=== PATIENT | female | born 1995 | race Caucasian/White ===

== ENCOUNTER 2019-03-26 07:55 | Emergency (ER) | payer OTHER ==
[2019-03-26 08:15] VITALS: BP 115/90
--- NOTE | 2019-03-26 09:25 | ED Physician Documentation ---
PD HPI SKIN - Stated complaint Stated Complaint: FEMALE /CONGESTED - Chief complaint Chief Complaint: General - History obtained from History obtained from: Patient - History of Present Illness Timing - onset: How many days ago (5) Timing - duration: Days (5) Timing - details: Gradual onset, Still present Location: Genitals Quality / character: Painful, Raised Similar symptoms before: Has not had sx before Recently seen: Not recently seen - Additional information Additional information: 23-year-old female who has a history of eczema has had a patch of eczema on the back of her right calf for the past 2 months and she has not had luck with getting the creams to make it go away. She is wondering if she can get some prednisone for this. In addition she has a small lump in the vaginal area that is tender to push on and it is smaller than a pea. Review of Systems Constitutional: denies: Fever Nose: denies: Congestion Throat: denies: Sore throat Respiratory: denies: Cough GI: denies: Vomiting PD PAST MEDICAL HISTORY - Past Medical History Past Medical History: Yes Derm: Eczema - Past Surgical History Past Surgical History: No - Present Medications Home Medications: Ambulatory Orders Medication Instructions Recorded Confirmed Sulfamethoxazole/Trimethoprim 1 each PO BID #14 tablet 03/26/19 [Sulfamethoxazole-Tmp Ds Tablet] predniSONE [Prednisone] 40 mg PO DAILY #10 tablet 03/26/19 - Allergies Allergies/Adverse Reactions: Allergies Allergy/AdvReac Type Severity Reaction Status Date / Time No Known Drug Allergies Allergy Verified 03/26/19 08:15 - Social History Does the pt smoke?: No Smoking Status: Never smoker Does the pt drink ETOH?: Yes Does the pt have substance abuse?: No - Immunizations Immunizations are current?: Yes - POLST Patient has POLST: No PD ED PE NORMAL - Vitals Vital signs reviewed: Yes (hypertensive ) - General General: Alert and oriented X 3, No acute distress, Well developed/nourished - HEENT HEENT: Atraumatic, PERRL - Respiratory Respiratory: No respiratory distress - Female Female : Stamping Mill Tender present (Katia), Other (There is a pea sized mass in the left labia majora that is firm and tender without overlying erythema) - Derm Derm: Normal color, Warm and dry, Other (There is an eczematous rash to the posterior aspect of the right knee. ) - Extremities Extremities: No deformity, No edema, Other - Neuro Neuro: No motor deficit, No sensory deficit Eye Opening: Spontaneous Motor: Obeys Commands Verbal: Oriented GCS Score: 15 - Psych Psych: Normal mood, Normal affect Results - Vitals Vitals: Vital Signs - 24 hr 03/26/19 08:10 Temperature 97.6 C H Heart Rate 84 Respiratory 14 Rate Blood Pressure 115/90 H O2 Saturation 84 L Oxygen O2 Source Room air PD MEDICAL DECISION MAKING - ED course Complexity details: considered differential, d/w patient ED course: 23 y/o female with eczema and a tiny abscess forming in the left vaginal area. Departure - Departure Disposition: Home, Self Care Clinical Impression: Abscess Eczema Qualifiers: Eczema type: flexural Qualified Code(s): L20.82 - Flexural eczema Condition: Stable Instructions: ED Dermatitis Atopic Eczema, ED Staph Infec Abx Tx Only Follow-Up: [facility] [Provider Group] Prescriptions: predniSONE [Prednisone] 40 mg PO DAILY #10 tablet Sulfamethoxazole/Trimethoprim [Sulfamethoxazole-Tmp Ds Tablet] 1 each PO BID #14 tablet
[2019-03-26 09:43] LABS: BILIRUBIN,URINE NEGATIVE (NEGATIVE); GLUCOSE, URINE (UA) NEGATIVE (NEGATIVE); KETONES,URINE (UA) TRACE mg/dL (NEGATIVE); LEUKOCYTE ESTERASE, URINE NEGATIVE (NEGATIVE); NITRITE,URINE NEGATIVE (NEGATIVE); OCCULT BLOOD,URINE NEGATIVE (NEGATIVE); PH,URINE 6.5 PH (5.0-7.5); PROTEIN,URINE NEGATIVE (NEGATIVE); UROBILINOGEN,URINE 0.2 (NORMAL) E.U./dL (NORMAL)
[2019-03-26 09:45] LABS: CLARITY,URINE CLEAR (CLEAR)
== END 2019-03-26 09:37 | disposition home or self-care (01) ==
LOC: ED 07:55
DX: L20.82 Flexural eczema (principal); N76.4 Abscess of vulva
CPT/HCPCS: 81001; 81003; 87086; 99283

== ENCOUNTER 2021-10-15 05:29 | Emergency (ER) | payer OTHER ==
--- NOTE | 2021-10-15 07:21 | ED Physician Documentation ---
PD HPI BACK PAIN - Stated complaint Stated Complaint: BACK/HEAD PX - Chief complaint Chief Complaint: Back Pain - History obtained from History obtained from: Patient - History of Present Illness Timing - onset: Yesterday Timing - duration: Hours (18) Timing - details: Abrupt onset (onset while lying in bed of flank pain to low back pain that radiates up toward upper back, worse with movement, and also associated with lower abd pain.), Still present (pain has persisted despite heat, ice, Ibuprofen, rest and movement.) Location: Mid, Right, Left Quality: Pain, Aching Associated symptoms: Other (some nausea but no vomiting.). No: Fever, Weakness, Numbness Worsened by: Movement Contributing factors: No: Lifting, Twisting, Trauma Similar symptoms before: Has not had sx before Recently seen: Not recently seen (had COVID vaccine about 6 months ago) Review of Systems Constitutional: reports: Myalgias, Fatigue. denies: Fever, Chills Nose: reports: Congestion. denies: Rhinorrhea / runny nose Throat: reports: Sore throat Cardiac: denies: Chest pain / pressure Respiratory: reports: Cough (mild). denies: Dyspnea GI: reports: Abdominal Pain, Nausea. denies: Vomiting, Constipation (no BM for couple days, but had not eaten much), Diarrhea : reports: LMP (3 weeks ago, normal). denies: Dysuria, Frequency, Discharge Skin: denies: Rash, Lesions Neurologic: reports: Headache (mild). denies: Near syncope Immunocompromised: denies: Immunocompromised PD PAST MEDICAL HISTORY - Past Medical History Past Medical History: Yes Cardiovascular: None Respiratory: None Neuro: None Endocrine/Autoimmune: None Derm: Eczema - Past Surgical History Past Surgical History: No - Present Medications Home Medications: Ambulatory Orders Medication Instructions Recorded Confirmed Sulfamethoxazole/Trimethoprim 1 each PO BID #14 tablet 03/26/19 [Sulfamethoxazole-Tmp Ds Tablet] predniSONE [Prednisone] 40 mg PO DAILY #10 tablet 03/26/19 Docusate Sodium 100Mg Capsule 100 mg PO DAILY #15 cap 10/15/21 [Colace 100Mg Capsule] HYDROcod/ACETAM 5/325 [[place] 5/325] 1 ea PO Q6H PRN #12 tablet 10/15/21 Naproxen 500 mg PO BID 10 Days #20 tab 10/15/21 Ondansetron Odt [Zofran] 4 mg TL Q6H PRN #10 tablet 10/15/21 methocarbamoL [Robaxin] 500 mg PO TID PRN #15 tablet 10/15/21 - Allergies Allergies/Adverse Reactions: Allergies Allergy/AdvReac Type Severity Reaction Status Date / Time No Known Drug Allergies Allergy Verified 03/26/19 08:15 - Social History Does the pt smoke?: No Smoking Status: Never smoker Does the pt drink ETOH?: Yes Does the pt have substance abuse?: No - Immunizations Immunizations are current?: Yes - POLST Patient has POLST: No PD ED PE NORMAL - Vitals Vital signs reviewed: Yes - General General: Alert and oriented X 3, Well developed/nourished, Other (appears uncomfortable with back movement, but also guarding lower abd. ) - HEENT HEENT: Moist mucous membranes, Pharynx benign - Neck Neck: Supple, no meningeal sign, No bony TTP, No adenopathy - Cardiac Cardiac: RRR, No murmur - Respiratory Respiratory: Clear bilaterally - Abdomen Abdomen: Normal bowel sounds, Soft, Non distended, Other (tender more RLQ with guarding. Mild percussion tenderness. Mild tender left lower abd as well. ) - Female Female : Deferred - Rectal Rectal: Deferred - Back Back: No spinal TTP, Other (there is bilateral tenderness to percussion in flank, more to the left actually. No rash nor sores. Some muscular tenderness thoracolumbar with just palpation. ) - Derm Derm: Normal color, Warm and dry - Neuro Neuro: Alert and oriented X 3, No motor deficit, Normal speech Results - Vitals Vitals: Vital Signs - 24 hr 10/15/21 10/15/21 05:35 08:26 Temperature 36.3 C L Heart Rate 94 76 Respiratory 18 13 Rate Blood Pressure 118/71 121/66 O2 Saturation 98 93 Oxygen O2 Source Room air - Labs Labs: Laboratory Tests 10/15/21 10/15/21 10/15/21 07:38 07:55 07:55 WBC 5.1 RBC 4.13 L Hgb 12.8 Hct 37.0 MCV 89.6 MCH 31.0 MCHC 34.6 RDW 11.5 L Plt Count 191 MPV 9.9 Neut # (Auto) 3.5 Lymph # (Auto) 0.6 L [place] # (Auto) 1.0 Eos # (Auto) 0.0 Baso # (Auto) 0.0 Absolute Nucleated RBC 0.00 Nucleated RBC % 0.0 Sodium 140 Potassium 4.4 Chloride 106 Carbon Dioxide 27 Anion Gap 7.0 BUN 10 Creatinine 0.7 Estimated GFR (MDRD) 103 Glucose 97 Calcium 9.2 Total Bilirubin 0.4 AST 22 ALT 17 Alkaline Phosphatase 43 Total Protein 7.5 Albumin 4.4 Globulin 3.1 Albumin/Globulin Ratio 1.4 Lipase 23 Urine Color YELLOW Urine Clarity CLEAR Urine pH 6.0 Ur Specific [place] 1.025 Urine Protein NEGATIVE Urine Glucose (UA) NEGATIVE Urine Ketones 15 H Urine Occult Blood NEGATIVE Urine Nitrite NEGATIVE Urine Bilirubin NEGATIVE Urine Urobilinogen 0.2 (NORMAL) Ur Leukocyte Esterase NEGATIVE Ur Microscopic Review NOT INDICATED Urine Culture Comments NOT INDICATED Urine HCG, Qual NEGATIVE Nasal Adenovirus (PCR) Nasal B. parapertussis DNA (PCR) Nasal Coronavir 229E PCR Nasal Coronavir HKU1 PCR Nasal Coronavir NL63 PCR Nasal Coronavir OC43 PCR Nasal Enterovir/Rhinovir PCR Nasal Influenza B PCR Nasal Influenza A PCR Nasal Parainfluen 1 PCR Nasal Parainfluen 2 PCR Nasal Parainfluen 3 PCR Nasal Parainfluen 4 PCR Nasal RSV (PCR) Nasal B.pertussis DNA PCR Nasal C.pneumoniae (PCR) Roderick Human Metapneumo PCR Nasal M.pneumoniae (PCR) Nasal SARS-CoV-2 (PCR) 10/15/21 07:57 WBC RBC Hgb Hct MCV MCH MCHC RDW Plt Count MPV Neut # (Auto) Lymph # (Auto) [place] # (Auto) Eos # (Auto) Baso # (Auto) Absolute Nucleated RBC Nucleated RBC % Sodium Potassium Chloride Carbon Dioxide Anion Gap BUN Creatinine Estimated GFR (MDRD) Glucose Calcium Total Bilirubin AST ALT Alkaline Phosphatase Total Protein Albumin Globulin Albumin/Globulin Ratio Lipase Urine Color Urine Clarity Urine pH Ur Specific [place] Urine Protein Urine Glucose (UA) Urine Ketones Urine Occult Blood Urine Nitrite Urine Bilirubin Urine Urobilinogen Ur Leukocyte Esterase Ur Microscopic Review Urine Culture Comments Urine HCG, Qual Nasal Adenovirus (PCR) NOT DETECTED Nasal B. parapertussis DNA (PCR) NOT DETECTED Nasal Coronavir 229E PCR NOT DETECTED Nasal Coronavir HKU1 PCR NOT DETECTED Nasal Coronavir NL63 PCR NOT DETECTED Nasal Coronavir OC43 PCR NOT DETECTED Nasal Enterovir/Rhinovir PCR NOT DETECTED Nasal Influenza B PCR NOT DETECTED Nasal Influenza A PCR NOT DETECTED Nasal Parainfluen 1 PCR NOT DETECTED Nasal Parainfluen 2 PCR NOT DETECTED Nasal Parainfluen 3 PCR NOT DETECTED Nasal Parainfluen 4 PCR NOT DETECTED Nasal RSV (PCR) NOT DETECTED Nasal B.pertussis DNA PCR NOT DETECTED Nasal C.pneumoniae (PCR) NOT DETECTED R[place]ick Human Metapneumo PCR NOT DETECTED Nasal M.pneumoniae (PCR) NOT DETECTED Nasal SARS-CoV-2 (PCR) DETECTED A PD MEDICAL DECISION MAKING - ED course Complexity details: reviewed results, re-evaluated patient, considered differential (Consider urinary tract infection versus kidney stone versus retrocecal appendix versus viral illness or other causes.), d/w patient Departure - Departure Disposition: 01 Home, Self Care Clinical Impression: COVID-19, Ruptured cyst of ovary, Myalgia Abdominal pain Qualifiers: Abdominal location: lower abdomen, unspecified Qualified Code(s): R10.30 - Lower abdominal pain, unspecified Condition: Stable Record reviewed to determine appropriate education?: Yes Instructions: ED Viral Syndrome, ED Cyst Ovarian Prescriptions: Docusate Sodium 100Mg Capsule [Colace 100Mg Capsule] 100 mg PO DAILY #15 cap Naproxen 500 mg PO BID 10 Days #20 tab HYDROcod/ACETAM 5/325 [[place] 5/325] 1 ea PO Q6H PRN #12 tablet PRN Reason: Pain methocarbamoL [Robaxin] 500 mg PO TID PRN #15 tablet PRN Reason: Spasms Ondansetron Odt [Zofran] 4 mg TL Q6H PRN #10 tablet PRN Reason: Nausea / Vomiting Comments: Your CT scan as well as urine test and blood tests do not show any signs of appendicitis. The appendix appears normal. You do have a partly ruptured ovarian cyst on the right side with a little bit of fluid in the pelvis status likely the cause of your lower abdominal and back pain. This should resolve with anti-inflammatories and pain medicine and time. You also tested positive for Covid and that would account for a lot of the other symptoms of general aches with the sore throat and cough and not feeling well. Stay well-hydrated. Use naproxen anti-inflammatory twice daily with food. To that add Tylenol every 4-6 hours for fevers or pains. Add hydrocodone if needed for worse pain in the short-term. Docusate stool softener twice daily for the first 2 or 3 days and then once daily to reduce the chance of constipation. Recheck if not improving over the next several days. You will need to follow your work related restrictions for being off work and quarantined. I transmitted the prescriptions to [facility] pharmacy. I am prescribing a short course of narcotic pain medication for you. These are potentially dangerous and addictive medications that should be used carefully. These medications may constipate you. Take an [id number] stool softener such as docusate twice daily with plenty of water while taking these medications. If you go 24 hours without a bowel movement, take [id number] MiraLAX, per package instructions. Do not drink or drive while taking these medications. If you received narcotic or sedating medications while in the emergency department do not drive for 24 hours. Store this medication in a safe, secure place and out of reach of children. It is a violation of federal law to give or sell this medication to another person or to use in a manner other than prescribed. The ED will not refill narcotic prescriptions, including prescriptions lost or s tolen. You can dispose of unwanted medications at the Risk Control Manager's office or at several pharmacies such as [facility]. Forms: Activity restrictions
[2021-10-15] MEDS ORDERED: ONDANSETRON 4 MG/2 ML VIAL IVP STA (07:36)
[2021-10-15] MEDS ORDERED: KETOROLAC 15 MG/ML VIAL IVP STA (07:36)
[2021-10-15] MEDS ORDERED: SODIUM CHLORIDE 0.9% 1,000 ML IV STA (07:36)
[2021-10-15] MEDS ORDERED: HYDROmorphone 1 MG/ML CARPUJECT IVP STA (07:36)
[2021-10-15 07:49] LABS: BILIRUBIN,URINE NEGATIVE (NEGATIVE); GLUCOSE, URINE (UA) NEGATIVE (NEGATIVE); KETONES,URINE (UA) 15 mg/dL (NEGATIVE); LEUKOCYTE ESTERASE, URINE NEGATIVE (NEGATIVE); NITRITE,URINE NEGATIVE (NEGATIVE); OCCULT BLOOD,URINE NEGATIVE (NEGATIVE); PROTEIN,URINE NEGATIVE (NEGATIVE); UROBILINOGEN,URINE 0.2 (NORMAL) E.U./dL (NORMAL)
[2021-10-15 07:56] LABS: CLARITY,URINE CLEAR (CLEAR); HCG UR QUAL NEGATIVE
[2021-10-15 08:10] LABS: BASOPHILS % (AUTO) 0.6 %; EOSINOPHILS % (AUTO) 0.4 %; HGB - HEMOGLOBIN 12.8 g/dL (12.0-16.0); LYMPHOCYTES # (AUTO) 0.6 10^3/uL (1.5-3.5); LYMPHOCYTES % (AUTO) 11.7 %; MEAN CORPUSCULAR HGB CONC 34.6 g/dL (32.0-36.0); MEAN CORPUSCULAR VOLUME 89.6 fL (81.0-99.0); MEAN PLATELET VOLUME 9.9 fL (7.9-10.8); MONOCYTES % (AUTO) 19.5 %; NEUTROPHILS # (AUTO) 3.5 10^3/uL (1.5-6.6); NEUTROPHILS % (AUTO) 67.4 %; PLT - PLATELET COUNT 191 10^3/uL (130-450); RED BLOOD COUNT 4.13 10^6/uL (4.20-5.40); RED CELL DISTRIBUTION WIDTH 11.5 % (12.0-15.0); WHITE BLOOD COUNT 5.1 x10^3/uL (4.8-10.8)
[2021-10-15] MEDS ORDERED: IOPAMIDOL-300 100 ML VIAL ONE (08:12)
[2021-10-15 08:22] LABS: ALBUMIN 4.4 g/dL (3.2-5.5); ALBUMIN/GLOBULIN RATIO 1.4 (1.0-2.2); BILIRUBIN,TOTAL 0.4 mg/dL (0.2-1.0); CALCIUM 9.2 mg/dL (8.5-10.3); CREATININE 0.7 mg/dL (0.4-1.0); POTASSIUM 4.4 mmol/L (3.5-5.0); TOTAL PROTEIN 7.5 g/dL (6.7-8.2)
[2021-10-15 08:27] VITALS: BP 121/66
--- NOTE | 2021-10-15 09:02 | CT Report ---
PROCEDURE: Abdomen/Pelvis W INDICATIONS: RLQ Abdominal pain, appendicitis suspected CONTRAST: IV CONTRAST: Isovue 300 ml: 100 PO CONTRAST: *NO PO CONTRAST TECHNIQUE: After the administration of contrast, 5 mm thick sections acquired from the diaphragms to the symphy sis. 5 mm thick coronal and sagittal reformats were acquired. For radiation dose reduction, the fol lowing was used: automated exposure control, adjustment of mA and/or kV according to patient size. COMPARISON: None. FINDINGS: Image quality: Excellent. ABDOMEN: Lung bases: Lung bases are clear. Heart size is normal. Solid organs: Liver is enlarged measuring 19.1 cm with steatosis. The spleen is normal in size and e nhancement. Gallbladder is unremarkable. Biliary system is non dilated. Pancreas enhances normally . No adrenal nodules. Kidneys demonstrate normal size and enhancement, without hydronephrosis. Peritoneum and bowel: Bowel loops demonstrate normal wall thickness and caliber. No free fluid or a ir. Prominent colonic stool is present. The appendix is visualized and is normal in size. It is air- filled without surrounding inflammatory change. Mild free fluid is noted within the pelvis. Nodes and vessels: No retroperitoneal or mesenteric adenopathy by size criteria. Aorta and inferior vena cava are normal in size. Miscellaneous: Trace fat-containing ventral hernia. PELVIS: Genitourinary: Bladder wall thickness is normal. There is a rim-enhancing focus within the right ad nexa measuring 1.8 cm surrounded by fluid. Miscellaneous: No inguinal hernias or adenopathy. Bones: No suspicious bony lesions. No vertebral body compression fractures. IMPRESSION: 1. Appendix is normal. 2. Mild free fluid within the pelvis. Rim-enhancing focus is noted within the right adnexal region friedman ggestive of ruptured hemorrhagic cyst. 3. Prominent stool, suggestive constipation. Reviewed by: Denisse Mcqueen MD on 10/15/2021 9:00 AM PST Approved by: Denisse Mcqueen MD on 10/15/2021 9:00 AM PST Station ID: [id number]
[2021-10-15] MEDS ORDERED: IOPAMIDOL-300 100 ML VIAL IVP ONE (09:06)
[2021-10-15 09:26] LABS: CORONAVIRUS 229E-RESP PCR NOT DETECTED; CORONAVIRUS HKU1-RESP PCR NOT DETECTED; CORONAVIRUS NL63-RESP PCR NOT DETECTED; CORONAVIRUS OC43-RESP PCR NOT DETECTED
[2021-10-15 09:27] LABS: B. PARAPERTUSSIS- RESP PCR PAN NOT DETECTED; B. PERTUSSIS- RESP PCR PANEL NOT DETECTED; C. PNEUMONIAE- RESP PCR PANEL NOT DETECTED; HUMAN METAPNEUMOVIRUS NOT DETECTED; INFLUENZA A- RESP PCR PANEL NOT DETECTED; INFLUENZA B - RESP PCR PANEL NOT DETECTED; M. PNEUMONIAE- RESP PCR PANEL NOT DETECTED; PARAINFLUENZA VIRUS 1 NOT DETECTED; PARAINFLUENZA VIRUS 2 NOT DETECTED; PARAINFLUENZA VIRUS 3 NOT DETECTED; PARAINFLUENZA VIRUS 4 NOT DETECTED; RHINOVIRUS/ENTEROVIRUS NOT DETECTED; RSV- RESP PCR PANEL NOT DETECTED; SARS-CoV-2 -RESP PCR PANEL DETECTED
== END 2021-10-15 11:54 | disposition home or self-care (01) ==
LOC: ED 05:29
DX: U07.1 COVID-19 (principal); N83.201 Unspecified ovarian cyst, right side
CPT/HCPCS: 0202U; 36415; 74177; 80053; 81003; 81025; 83690; 85025; 96374; 96375; 99284; J1170; Q9967; 81001; 87086

== ENCOUNTER 2022-08-26 07:40 | Emergency (ER) | payer OTHER ==
[2022-08-26 07:50] VITALS: BP 124/68
--- NOTE | 2022-08-26 08:09 | ED Physician Documentation ---
History of Present Illness - Stated complaint Stated Complaint: CHEST PX - Chief complaint Chief Complaint: Cardiac - Additonal information Additional information: Patient is 26-year-old female with left-sided chest pain. Ongoing x1 day. De nies previous episodes of chest pain. Pain made worse with deep inspiration. Denies chronic medical issues. Does report recent transcontinental travel approximately 1 month ago. Denies swelling in the lower extremities. Infrequent tobacco use. Review of Systems Ten Systems: 10 systems reviewed and negative Constitutional: denies: Fever Eyes: denies: Loss of vision Ears: denies: Loss of hearing Nose: denies: Rhinorrhea / runny nose Throat: denies: Dental pain / toothache Cardiac: reports: Chest pain / pressure Respiratory: denies: Dyspnea GI: denies: Abdominal Pain, Nausea, Vomiting PD PAST MEDICAL HISTORY - Past Medical History Cardiovascular: None Respiratory: None Neuro: None Endocrine/Autoimmune: None Derm: Eczema - Past Surgical History Past Surgical History: No - Present Medications Home Medications: Ambulatory Orders Medication Instructions Recorded Confirmed Sulfamethoxazole/Trimethoprim 1 each PO BID #14 tablet 03/26/19 [Sulfamethoxazole-Tmp Ds Tablet] predniSONE [Prednisone] 40 mg PO DAILY #10 tablet 03/26/19 Docusate Sodium 100Mg Capsule 100 mg PO DAILY #15 cap 10/15/21 [Colace 100Mg Capsule] HYDROcod/ACETAM 5/325 [[place] 5/325] 1 ea PO Q6H PRN #12 tablet 10/15/21 Naproxen 500 mg PO BID 10 Days #20 tab 10/15/21 Ondansetron Odt [Zofran] 4 mg TL Q6H PRN #10 tablet 10/15/21 methocarbamoL [Robaxin] 500 mg PO TID PRN #15 tablet 10/15/21 HYDROcod/ACETAM 5/325 [[place] 5/325] 1 - 2 ea PO Q6H PRN #14 tablet 08/26/22 - Allergies Allergies/Adverse Reactions: Allergies Allergy/AdvReac Type Severity Reaction Status Date / Time No Known Drug Allergies Allergy Verified 08/26/22 07:50 - Social History Does the pt smoke?: No Smoking Status: Never smoker Does the pt drink ETOH?: Yes Does the pt have substance abuse?: No - Immunizations Immunizations are current?: Yes - POLST Patient has POLST: No PD ED PE NORMAL - Vitals Vital signs reviewed: Yes - General General: Alert and oriented X 3, No acute distress, Well developed/nourished - HEENT HEENT: Atraumatic, PERRL, EOMI, Ears normal - Neck Neck: Supple, no meningeal sign - Cardiac Cardiac: RRR, No gallop, Strong equal pulses - Respiratory Respiratory: No respiratory distress, Clear bilaterally - Abdomen Abdomen: Normal bowel sounds - Female Female : Deferred - Derm Derm: Normal color - Extremities Extremities: No deformity - Neuro Neuro: Alert and oriented X 3, 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 iron 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 2-12 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, No motor deficit, Normal speech Results - Vitals Vitals: Vital Signs - 24 hr 08/26/22 08/26/22 07:47 09:46 Temperature 36.0 C L 36 C L Heart Rate 72 72 Respiratory 16 17 Rate Blood Pressure 124/68 124/68 O2 Saturation 97 98 Oxygen O2 Source Room air - EKG (time done) 0756 Rate: Rate (enter#) Rhythm: NSR [place]: Normal Intervals: Normal MS QRS: Normal Ischemia: Normal ST segments - Labs Labs: Laboratory Tests 08/26/22 08/26/22 08/26/22 08:06 08:06 08:06 WBC 4.0 L RBC 4.15 L Hgb 12.7 Hct 37.4 MCV 90.1 MCH 30.6 MCHC 34.0 RDW 11.8 L Plt Count 274 MPV 9.5 Neut # (Auto) 1.8 Lymph # (Auto) 1.5 [place] # (Auto) 0.6 Eos # (Auto) 0.1 Baso # (Auto) 0.1 Absolute Nucleated RBC 0.00 Nucleated RBC % 0.0 D-Dimer < 200.0 L Sodium 138 Potassium 3.5 Chloride 106 Carbon Dioxide 25 Anion Gap 7.0 BUN 9 Creatinine 0.6 Estimated GFR (MDRD) 122 Glucose 105 H Calcium 9.0 Total Bilirubin 0.9 AST 15 ALT 11 Alkaline Phosphatase 42 Troponin I High Sens Total Protein 7.1 Albumin 4.3 Globulin 2.8 Albumin/Globulin Ratio 1.5 Lipase 25 08/26/22 08:06 WBC RBC Hgb Hct MCV MCH MCHC RDW Plt Count MPV Neut # (Auto) Lymph # (Auto) [place] # (Auto) Eos # (Auto) Baso # (Auto) Absolute Nucleated RBC Nucleated RBC % D-Dimer Sodium Potassium Chloride Carbon Dioxide Anion Gap BUN Creatinine Estimated GFR (MDRD) Glucose Calcium Total Bilirubin AST ALT Alkaline Phosphatase Troponin I High Sens < 2.3 L Total Protein Albumin Globulin Albumin/Globulin Ratio Lipase PD MEDICAL DECISION MAKING - ED course Complexity details: reviewed results, re-evaluated patient, d/w patient ED course: Patient 26-year-old female presenting to the emergency department with left upper chest wall pain. Afebrile, hemodynamically stable. EKG nonacute. High- sensitivity troponin negative. Onset of pain was greater than 6 hours ago. D- dimer negative. Chest x-ray nonacute. Most likely etiology for the patient's pain is musculoskeletal. Will initiate high-dose nonsteroidal anti-inflammatory medications. Encourage careful follow-up with primary care or return to the emergency department as needed. Departure - Departure Disposition: 01 Home, Self Care Clinical Impression: Chest wall pain Instructions: ED Chest Pain Costochondritis Prescriptions: HYDROcod/ACETAM 5/325 [[place] 5/325] 1 - 2 ea PO Q6H PRN #14 tablet PRN Reason: Pain Comments: Thank you for allowing us to care for you today at [facility]. Prescription sent to [facility] Today in the emergency department your evaluated for any possible life- threatening medical emergency. All the testing performed in the emergency department including your EKG, chest x-ray and blood work were all very reassuring. There is no indication of injury to your heart, blood clot in your lung or other life-threatening process. In situations like this the most likely cause of chest pain is injury to the musculoskeletal structures of the chest wall. This is known as costochondritis and I have attached some information about this condition. I will be discharging with some medication you can take for pain control. Please drink plenty fluids and get plenty of rest. Please be aware that this medication is both sedating and habit-forming. It should not be used if you are operating a motor vehicle, using of machinery or you are the sole specification writer of young children. This medication cannot be refilled from the emergency department. Please make a follow-up appoint with your primary care doctor soon as possible. If it anytime you develop any new or worsening symptoms please not hesitate to return to the emergency department. Discharge Date/Time: 08/26/22 09:46
[2022-08-26 08:13] LABS: BASOPHILS # (AUTO) 0.1 10^3/uL (0.0-0.1); BASOPHILS % (AUTO) 1.3 %; EOSINOPHILS # (AUTO) 0.1 10^3/uL (0.0-0.7); EOSINOPHILS % (AUTO) 2.3 %; HCT - HEMATOCRIT 37.4 % (37.0-47.0); HGB - HEMOGLOBIN 12.7 g/dL (12.0-16.0); LYMPHOCYTES # (AUTO) 1.5 10^3/uL (1.5-3.5); LYMPHOCYTES % (AUTO) 37.7 %; MEAN CORPUSCULAR HEMOGLOBIN 30.6 pg (27.0-31.0); MEAN CORPUSCULAR VOLUME 90.1 fL (81.0-99.0); MEAN PLATELET VOLUME 9.5 fL (7.9-10.8); MONOCYTES # (AUTO) 0.6 10^3/uL (0.0-1.0); MONOCYTES % (AUTO) 14.6 %; NEUTROPHILS # (AUTO) 1.8 10^3/uL (1.5-6.6); NEUTROPHILS % (AUTO) 44.1 %; PLT - PLATELET COUNT 274 10^3/uL (130-450); RED BLOOD COUNT 4.15 10^6/uL (4.20-5.40); RED CELL DISTRIBUTION WIDTH 11.8 % (12.0-15.0)
[2022-08-26 08:31] LABS: ALBUMIN 4.3 g/dL (3.2-5.5); ALBUMIN/GLOBULIN RATIO 1.5 (1.0-2.2); BILIRUBIN,TOTAL 0.9 mg/dL (0.2-1.0); CREATININE 0.6 mg/dL (0.4-1.0); POTASSIUM 3.5 mmol/L (3.5-5.0); TOTAL PROTEIN 7.1 g/dL (6.7-8.2)
--- NOTE | 2022-08-26 09:24 | XRAY Report ---
PROCEDURE: Chest 1 View X-Ray INDICATIONS: chest pain TECHNIQUE: One view of the chest was acquired. COMPARISON: None. FINDINGS: Surgical changes and devices: None. Lungs and pleura: No pleural effusions or pneumothorax. Lungs are clear. Mediastinum: Mediastinal contours appear normal. Heart size is normal. Bones and chest wall: No suspicious bony lesions. Overlying soft tissues appear unremarkable. IMPRESSION: No acute pulmonary process. Reviewed by: Denisse Mcqueen MD on 08/26/2022 9:23 AM [facility] Approved by: Denisse Mcqueen MD on 08/26/2022 9:23 AM [facility] Station ID: [id number]
== END 2022-08-26 09:46 | disposition home or self-care (01) ==
LOC: ED 07:40
DX: R07.89 Other chest pain (principal); F17.200 Nicotine dependence, unspecified, uncomplicated
CPT/HCPCS: 36415; 80053; 83690; 84484; 85025; 85379; 93005; 99282; 99284